=== PATIENT | female | born 1940 | race African-American/Black ===

== ENCOUNTER 2019-01-13 22:08 | Emergency (ER) | payer MEDICARE, MEDICAID ==
[~2019-01-13] VITALS: Ht 165.1 cm; Wt 64.0 kg
[2019-01-14] MEDS ORDERED: KETOROLAC 30MG/ML VIAL IV STA (03:10)
[2019-01-14 03:27] LABS: BASOPHILS % 0.3 % (0.0-2.0); EOSINOPHILS % 0.4 % (0.0-5.0); HEMOGLOBIN. 10.8 g/dL (12.0-16.0); LYMPHOCYTES % 25.7 % (20.0-50.0); MEAN CORPUSCULAR HEMOGLOBIN 33.5 pg (28.0-32.0); MEAN CORPUSCULAR VOLUME 99.3 fL (81.0-99.0); MEAN PLATELET VOLUME 7.9 fl (7.4-10.4); MONOCYTES % 8.4 % (2.0-8.0); NEUTROPHILS % 65.2 % (40.0-76.0); PLATELET 151 x1000/uL (130-400); RED BLOOD CELL COUNT 3.23 mill/uL (4.2-5.4); RED CELL DISTRIBUTION WIDTH 13.2 % (11.6-14.6)
[2019-01-14 03:30] LABS: CHLORIDE 100 mEq/L (98-107)
[2019-01-14 07:09] VITALS: BP 144/61
== END 2019-01-14 07:11 | disposition home or self-care (01) ==
LOC: ER 22:08 → CANBEDREQ 01-14 08:08
DX: R53.1 Weakness (principal); M79.10 Myalgia, unspecified site; R63.4 Abnormal weight loss; I10 Essential (primary) hypertension; R19.7 Diarrhea, unspecified; R11.0 Nausea
CPT/HCPCS: 36415; 71045; 80053; 83690; 83880; 84484; 85025; 87804; 93005; 96374; 99284; J1885